=== PATIENT | male | born 1995 | race Caucasian/White ===

== ENCOUNTER 2016-12-21 22:14 | Emergency (ER) | payer OTHER, BC ==
--- NOTE | 2016-12-21 22:42 | CPEKG ---
Heart Rate: 63 RR Interval: 952 P-R Interval: 172 QRSD Interval: 92 QT Interval: 388 QTC Interval: 398 P [place]: 69 QRS [place]: 14 T Wave [place]: 32 EKG Severity - NORMAL ECG - EKG Impression: SINUS RHYTHM Electronically Signed By: Osmel Mckenzie 22-Dec-2016 00:07:27
--- NOTE | 2016-12-21 22:49 | EDPHY ---
H & P Time Seen by Provider: 12/21/16 22:22 HPI/ROS: HPI Lightheaded, visual changes, tingling in extremities. 21-year-old male by private vehicle. This patient reports that he was working out. He was weight lifting. He reports that in between sets of bench presses he would get a flushed feeling described as tingling all over and feeling lightheaded + seeing stars from both eyes but more from the left eye verses the right eye. He reports that he continue to work out and after each set these symptoms seem more pronounced. He then states he felt a dull, gradual onset headache during the workout and felt very fatigued. He left the gym and states that he felt a tingling sensation spread through his left upper extremity and a cramping sensation in his left forearm and hand at the same time. Reports he continued to have a sensation of seeing stars from the left eye. He went home and slept for an hour. He woke up and felt better. He was then doing an online test and again felt very fatigued having to put his head down between questions to rest. He states that he feels much better now that his symptoms have resolved. He talked to his parents and his parents told him to come to the emergency department to be evaluated. He is otherwise healthy and has never had these symptoms before. Denies camping or being out in the [place], exposure to tics. ROS: Constitutional: No fever, no chills. As above. Eyes: No discharge. As above. ENT: No sore throat. No nasal congestion or rhinorrhea. Respiratory: No cough. No shortness of breath. Cardiac: No chest pain, no palpitations. Gastrointestinal: No abdominal pain, no vomiting, no diarrhea. Genitourinary: No hematuria. No dysuria or increased frequency with urination. Musculoskeletal: No back pain. No neck pain. No myalgias or arthralgias. Skin: No rashes. Neurological: As above. No focal weakness or altered sensation. Past medical history: No past medical history. No prescription medications. Social history: Nonsmoker. Denies alcohol. Here by himself. Student [employer]. Physical Exam: General Appearance: Alert, no distress. This patient is responding to questions appropriately and in full sentences. This patient appears well- hydrated and well-nourished. Eyes: Pupils equal and round no pallor or injection. No lid edema, erythema or injection. No photophobia. No nystagmus. ENT, Mouth: Mucous membranes are moist. The pharyngeal tissues are unremarkable. No edema or swelling. No asymmetry suggestive of abscess. No erythema or exudates. Respiratory: There are no retractions, lungs are clear to auscultation with good air movement bilaterally. Cardiovascular: Regular rate and rhythm. No murmur. Gastrointestinal: Abdomen is soft and nontender, no masses, bowel sounds normal. No focal tenderness at McBurney's point. No Worley sign. Neurological: Motor sensory function is grossly intact. Cranial nerves are normal. Gait is normal. Skin: Warm and dry, no rashes. Musculoskeletal: Neck is supple and nontender. No pain on flexion of the neck. No bruits auscultated over his carotid arteries. No suboccipital posterior cervical pain on palpation. Extremities are symmetrical. All joints range without pain or impingement. Psychiatric: No agitation. No depression. Database: EKG: EKG time is 10:41 p.m.; EKG shows a narrow complex normal sinus rhythm with a ventricular rate of 63. The ND, QRS, QT intervals are within normal limits. There are no ST-T wave changes indicative of ischemic or injury pattern. No evidence of right heart strain. No evidence of Brugada syndrome, WPW, hypertrophic cardiomyopathy. Interpreted by me. Imaging: Carotid and vertebral artery Doppler ultrasounds: Normal bilateral carotid artery Doppler and vertebral artery Doppler ultrasounds. Results were discussed with staff radiologist Dr. Guillaume Lincoln. Procedures: Emergency department course: IV placed. He was placed on a mushroom packer. Vital signs reviewed and are normal. He was started on IV normal saline with 1 L to be given over 1 hour. EKG performed. Basic blood work obtained. Carotid artery Dopplers ordered. 11:30 p.m., patient re-evaluated. Resting comfortably at this time. He is asymptomatic. Results of blood work, EKG and Doppler ultrasounds discussed with him. Repeat neurologic Assessment is nonfocal. He has no complaints. He does feel comfortable going home and I feel he is safe for discharge. Return to emergency department precautions were thoroughly reviewed with him. Follow-up was discussed. All of his questions were answered. He was discharged home in good condition. Differential Diagnosis: The differential diagnosis on this patient includes but is not limited to hypoglycemia, anemia, stress reaction. TIA, CVA, MS unlikely. This represents a partial list of diagnoses considered. These considerations are based on history, physical exam, past history, reassessment and diagnostic testing. Smoking Status: Current some day smoker Constitutional: Initial Vital Signs Temperature (C) 36.7 C 12/21/16 22:17 Heart Rate 77 12/21/16 22:17 Respiratory Rate 16 12/21/16 22:17 Blood Pressure 131/63 H 12/21/16 22:17 O2 Sat (%) 95 12/21/16 22:17 O2 Delivery Mode Room Air Allergies/Adverse Reactions: No Known Allergies Allergy (Unverified 12/21/16 22:20) Home Medications: Medication Instructions Recorded NK [No Known Home Meds] 12/21/16 Medical Decision Making - Data Points Laboratory Results: Laboratory Results 12/21/16 22:50 12/21/16 22:50 12/21/16 12/21/16 22:50 22:50 WBC 12.17 10^3/uL H 10^3/uL (3.80-9.50) RBC 4.93 10^6/uL 10^6/uL (4.40-6.38) Hgb 16.0 g/dL g/dL (13.7-17.5) Hct 45.1 % % (40.0-51.0) MCV 91.5 fL fL (81.5-99.8) MCH 32.5 pg pg (27.9-34.1) MCHC 35.5 g/dL g/dL (32.4-36.7) RDW 10.9 % L % (11.5-15.2) Plt Count 258 10^3/uL 10^3/uL (150-400) MPV 10.4 fL fL (8.7-11.7) Neut % (Auto) 80.0 % H % (39.3-74.2) Lymph % (Auto) 14.2 % L % (15.0-45.0) [place] % (Auto) 3.8 % L % (4.5-13.0) Eos % (Auto) 1.0 % % (0.6-7.6) Baso % (Auto) 0.4 % % (0.3-1.7) Nucleat RBC Rel Count 0.0 % % (0.0-0.2) Absolute Neuts (auto) 9.74 10^3/uL H 10^3/uL (1.70-6.50) Absolute Lymphs (auto) 1.73 10^3/uL 10^3/uL (1.00-3.00) Absolute Monos (auto) 0.46 10^3/uL 10^3/uL (0.30-0.80) Absolute Eos (auto) 0.12 10^3/uL 10^3/uL (0.03-0.40) Absolute Basos (auto) 0.05 10^3/uL 10^3/uL (0.02-0.10) Absolute Nucleated RBC 0.00 10^3/uL 10^3/uL (0-0.01) Immature Gran % 0.6 % % (0.0-1.1) Immature Gran # 0.07 10^3/uL 10^3/uL (0.00-0.10) Sodium 134 mEq/L mEq/L (134-144) Potassium 4.2 mEq/L mEq/L (3.5-5.2) Chloride 100 mEq/L mEq/L (97-110) Carbon Dioxide 23 mEq/l mEq/l (22-31) Anion Gap 11 mEq/L mEq/L (8-16) BUN 19 mg/dL mg/dL (7-23) Creatinine 1.0 mg/dL mg/dL (0.7-1.3) Estimated GFR > 60 Glucose 99 mg/dL mg/dL (70-100) Calcium 9.7 mg/dL mg/dL (8.5-10.4) Medications Given: Discontinued Medications Sodium Chloride (Ns) 1,000 mls @ 0 mls/hr IV ONCE ONE PRN Reason: Wide Open Stop: 12/21/16 22:51 Last Admin: 12/21/16 22:55 Dose: 1,000 mls Departure - Departure Disposition: Home, Routine, Self-Care Clinical Impression: Paresthesia, Transient visual disturbance, Fatigue, Possible viral syndrome Condition: Good Instructions: Paresthesia (ED), Blurred Vision (ED) Additional Instructions: Read and follow provided instructions. Follow-up with your primary care physician at the [facility], in 1-2 days for re-evaluation. Keep yourself well hydrated and avoid exercise or strenuous activity for the next couple of days until after you have seen your primary care physician. Most important, return to the emergency department immediately for worsening headache, return of symptoms or other serious concerns. Referrals: JOY MENDOZA [Other] - As per Instructions AYAD Chan,. [Clinic] - As per Instructions
[2016-12-21] MEDS ORDERED: NS 1,000 ML IV ONE (22:50)
[2016-12-21 23:03] LABS: % IMMATURE GRANULYOCYTES 0.6 % (0.0-1.1); ABSOLUTE IMMATURE GRANULOCYTES 0.07 10^3/uL (0.00-0.10); ADD DIFF? NO; ADD MORPH? NO; ADD SCAN? NO; ATYPICAL LYMPHOCYTE FLAG 10 (0-99); FRAGMENT RBC FLAG 0 (0-99); HEMATOCRIT 45.1 % (40.0-51.0); LEFT SHIFT FLG 0 (0-99); LIPEMIA HEMOLYSIS FLAG 90 (0-99); MEAN CELL HEMOGLOBIN 32.5 pg (27.9-34.1); MEAN CELL HEMOGLOBIN CONCENTR. 35.5 g/dL (32.4-36.7); MEAN CELL VOLUME 91.5 fL (81.5-99.8); MEAN PLATELET VOLUME 10.4 fL (8.7-11.7); PLATELET CLUMPS FLAG 10 (0-99); PLATELET COUNT 258 10^3/uL (150-400); RED BLOOD CELL COUNT 4.93 10^6/uL (4.40-6.38); RED CELL DISTRIBUTION WIDTH 10.9 % (11.5-15.2)
[2016-12-21 23:19] LABS: ANION GAP 11 mEq/L (8-16); CALCIUM 9.7 mg/dL (8.5-10.4); CARBON DIOXIDE 23 mEq/l (22-31); CHLORIDE 100 mEq/L (97-110); GLOMERULAR FILTRATION RATE > 60; GLUCOSE 99 mg/dL (70-100); POTASSIUM 4.2 mEq/L (3.5-5.2); SODIUM 134 mEq/L (134-144)
[2016-12-21 23:38] VITALS: BP 124/66; PULSE 57; RESP 20; TEMP 97.5; O2SAT 98
== END 2016-12-21 23:38 | disposition home or self-care (01) ==
DX: H53.9 Unspecified visual disturbance (principal); R20.2 Paresthesia of skin; R53.83 Other fatigue; F17.200 Nicotine dependence, unspecified, uncomplicated

== ENCOUNTER 2017-06-17 05:37 | Emergency (ER) | payer OTHER, BC ==
[2017-06-17 05:43] VITALS: RESP 18; O2SAT 96
--- NOTE | 2017-06-17 05:57 | EDPHY ---
H & P Stated Complaint: LEFT FLANK PAIN STARED LAST NIGHT Source: Patient - Personal History Current Tetanus/Diphtheria Vaccine: Unsure - Medical/Surgical History Hx Asthma: No Hx Chronic Respiratory Disease: No Hx Diabetes: No Hx Cardiac Disease: No Hx Renal Disease: No Hx Cirrhosis: No Hx Alcoholism: No Hx HIV/AIDS: No Hx Splenectomy or Spleen Trauma: No Other PMH: LEFT SHOULDER SURG, TOOK GROWTH HORMONE - Social History Smoking Status: Current some day smoker HPI/ROS: HPI CHIEF COMPLAINT: Left flank pain HISTORY OF PRESENT ILLNESS: This patient is a 21-year-old male otherwise healthy no significant medical history does take a sleep aid at night, he presents emergency room with left flank pain. States this started around 1:00 p.m. last night. He does not recall any injury. He states hurt with certain positions and movements but he feels it "deep inside" describes sharp stabbing. It is paravertebral lumbar region left CVA region. He denies the pain radiating to his belly or genitals. Denies pain going down his gluteus or back. Stays localized to left CVA region. Denies injury or trauma. No fever. Past Medical History: No significant medical history Past Surgical History: No significant surgical history Social History: Denies daily use drugs alcohol tobacco products. [employer] student. Family History: Noncontributing ROS REVIEW OF SYSTEMS: A comprehensive 10 point review of systems is otherwise negative aside from elements mentioned in the history of present illness. Exam Constitutional appears well nontoxic triage nursing summary reviewed, vital signs reviewed, awake/alert. Eyes normal conjunctivae and sclera, EOMI, PERRLA. HENT normal inspection, atraumatic, moist mucus membranes, no epistaxis, neck supple/ no meningismus, no raccoon eyes. Respiratory clear to auscultation bilaterally, normal breath sounds, no respiratory distress, no wheezing. Cardiovascular rate normal, regular rhythm, no murmur, no edema, distal pulses normal. Gastrointestinal soft, non-tender, no rebound, no guarding, normal bowel sounds, no distension, no pulsatile mass. Genitourinary no CVA tenderness. Musculoskeletal specifically no midline lumbar pain, nontender palpation, no midline vertebral tenderness, full range of motion, no calf swelling, no tenderness of extremities, no meningismus, good pulses, neurovascularly intact. Skin pink, warm, & dry, no rash, skin atraumatic. Neurologic awake, alert and oriented x 3, AAOx3, moves all 4 extremities equally, motor intact, sensory intact, CN II-XII intact, normal cerebellar, normal vision, normal speech. Psychiatric normal mood/affect. Heme/Lymph/Immune no lymphadenopathy. Differential Diagnosis: Includes but is not limited to in a particular order kidney stone, hydroureter, hydronephrosis, musculoskeletal back pain, disc herniation, annular tear, nerve root compression Medical Decision Making: Plan for this patient check urinalysis, blood work, CT scan abdomen pelvis without contrast for acute left flank pain. IV Toradol and IV fluids. Re-evaluate. Re-evaluation: CT abdomen pelvis without contrast is negative for kidney stone. Normal appendix per constipation. Urinalysis pending. I did re-evaluate the patient. He is tells me he is feeling much better after IV Toradol. CT scan has been reviewed blood work reviewed. Urinalysis pending. His urinalysis normally can go home. Flexeril and ibuprofen for pain control. He understands return emergency room if he has worsening symptoms questions or concerns. (Daquan Michael) Constitutional: Initial Vital Signs Temperature (C) 36.6 C 06/17/17 05:40 Heart Rate 60 06/17/17 05:40 Respiratory Rate 18 06/17/17 05:40 Blood Pressure 98/59 L 06/17/17 05:40 O2 Sat (%) 96 06/17/17 05:40 O2 Delivery Mode Room Air Allergies/Adverse Reactions: No Known Allergies Allergy (Unverified 06/17/17 05:40) Home Medications: Medication Instructions Recorded Ibuprofen [Motrin (*)] 800 mg PO Q6-8PRN #10 tab 06/17/17 Medical Decision Making ED Course/Re-evaluation: 725 patient signed out to me pending urinalysis results. 0811 urinalysis is positive for blood. Symptoms are consistent with a passed kidney stone. Will discharge patient home. I do not think he probably needs Flexeril at this time. Continue ibuprofen. Follow up with primary care physician as needed. (Jim Waters) - Data Points Laboratory Results: Laboratory Results 06/17/17 06:15 06/17/17 06:15 06/17/17 06/17/17 06/17/17 07:25 06:15 06:15 WBC 6.30 10^3/uL 10^3/uL (3.80-9.50) RBC 4.87 10^6/uL 10^6/uL (4.40-6.38) Hgb 15.4 g/dL g/dL (13.7-17.5) Hct 45.0 % % (40.0-51.0) MCV 92.4 fL fL (81.5-99.8) MCH 31.6 pg pg (27.9-34.1) MCHC 34.2 g/dL g/dL (32.4-36.7) RDW 11.4 % L % (11.5-15.2) Plt Count 247 10^3/uL 10^3/uL (150-400) MPV 10.3 fL fL (8.7-11.7) Neut % (Auto) 47.5 % % (39.3-74.2) Lymph % (Auto) 41.6 % % (15.0-45.0) [place] % (Auto) 6.7 % % (4.5-13.0) Eos % (Auto) 3.0 % % (0.6-7.6) Baso % (Auto) 1.0 % % (0.3-1.7) Nucleat RBC Rel Count 0.0 % % (0.0-0.2) Absolute Neuts (auto) 3.00 10^3/uL 10^3/uL (1.70-6.50) Absolute Lymphs (auto) 2.62 10^3/uL 10^3/uL (1.00-3.00) Absolute Monos (auto) 0.42 10^3/uL 10^3/uL (0.30-0.80) Absolute Eos (auto) 0.19 10^3/uL 10^3/uL (0.03-0.40) Absolute Basos (auto) 0.06 10^3/uL 10^3/uL (0.02-0.10) Absolute Nucleated RBC 0.00 10^3/uL 10^3/uL (0-0.01) Immature Gran % 0.2 % % (0.0-1.1) Immature Gran # 0.01 10^3/uL 10^3/uL (0.00-0.10) Sodium 140 mEq/L mEq/L (134-144) Potassium 4.3 mEq/L mEq/L (3.5-5.2) Chloride 103 mEq/L mEq/L (97-110) Carbon Dioxide 24 mEq/l mEq/l (22-31) Anion Gap 13 mEq/L mEq/L (8-16) BUN 17 mg/dL mg/dL (7-23) Creatinine 1.0 mg/dL mg/dL (0.7-1.3) Estimated GFR > 60 Glucose 88 mg/dL mg/dL (70-100) Calcium 9.6 mg/dL mg/dL (8.5-10.4) Total Bilirubin 1.0 mg/dL mg/dL (0.1-1.4) Conjugated Bilirubin 0.3 mg/dL mg/dL (0.0-0.5) Unconjugated Bilirubin 0.7 mg/dL mg/dL (0.0-1.1) AST 22 IU/L IU/L (17-59) ALT 36 IU/L IU/L (21-72) Alkaline Phosphatase 50 IU/L IU/L (38-126) Total Protein 7.1 g/dL g/dL (6.3-8.2) Albumin 4.6 g/dL g/dL (3.5-5.0) Lipase 66 IU/L IU/L (23-300) Urine Color YELLOW Urine Appearance CLEAR Urine pH 6.0 (5.0-7.5) Ur Specific [place] 1.014 (1.002-1.030) Urine Protein NEGATIVE (NEGATIVE) Urine Ketones NEGATIVE (NEGATIVE) Urine Blood 1+ H (NEGATIVE) Urine Nitrate NEGATIVE (NEGATIVE) Urine Bilirubin NEGATIVE (NEGATIVE) Urine Urobilinogen NEGATIVE EU EU (0.2-1.0) Ur Leukocyte Esterase NEGATIVE (NEGATIVE) Urine RBC 5-10 /hpf H /hpf (0-3) Urine WBC NONE SEEN /hpf /hpf (0-3) Ur Epithelial Cells NONE SEEN /lpf /lpf (NONE-1+) Urine Mucus TRACE /lpf /lpf (NONE-1+) Urine Glucose NEGATIVE (NEGATIVE) Medications Given: Discontinued Medications Sodium Chloride (Ns) 1,000 mls @ 0 mls/hr IV EDNOW ONE; Wide Open PRN Reason: Protocol Stop: 08/31/17 06:04 Last Admin: 06/17/17 06:18 Dose: 1,000 mls Ketorolac Tromethamine (Toradol) 30 mg IVP EDNOW ONE Stop: 06/17/17 06:04 Last Admin: 06/17/17 06:18 Dose: 30 mg Departure - Departure Disposition: Home, Routine, Self-Care Clinical Impression: Kidney stone Condition: Good Instructions: Kidney Stones (ED) Additional Instructions: Your findings today suggest you have passed a kidney stone. There is no evidence of a kidney stone on her CT scan at this time. Continue taking ibuprofen as needed. Follow up with primary care physician for any concerns. Return to the emergency depart for increasing pain, nausea, vomiting, fevers, chills, or any other concerns. Referrals: Patient,NotPresent [Unknown] - As per Instructions Prescriptions: Ibuprofen [Motrin (*)] 800 mg PO Q6-8PRN #10 tab
[2017-06-17] MEDS ORDERED: NS 1,000 ML IV ONE (06:03)
[2017-06-17] MEDS ORDERED: KETOROLAC 30 MG/1 ML SDV IVP ONE (06:03)
[2017-06-17 06:28] LABS: % IMMATURE GRANULYOCYTES 0.2 % (0.0-1.1); ABSOLUTE IMMATURE GRANULOCYTES 0.01 10^3/uL (0.00-0.10); ADD DIFF? NO; ADD MORPH? NO; ADD SCAN? NO; ATYPICAL LYMPHOCYTE FLAG 20 (0-99); FRAGMENT RBC FLAG 0 (0-99); HEMOGLOBIN 15.4 g/dL (13.7-17.5); LEFT SHIFT FLG 0 (0-99); LIPEMIA HEMOLYSIS FLAG 90 (0-99); MEAN CELL HEMOGLOBIN 31.6 pg (27.9-34.1); MEAN CELL HEMOGLOBIN CONCENTR. 34.2 g/dL (32.4-36.7); MEAN CELL VOLUME 92.4 fL (81.5-99.8); MEAN PLATELET VOLUME 10.3 fL (8.7-11.7); PLATELET CLUMPS FLAG 10 (0-99); PLATELET COUNT 247 10^3/uL (150-400); RED BLOOD CELL COUNT 4.87 10^6/uL (4.40-6.38); RED CELL DISTRIBUTION WIDTH 11.4 % (11.5-15.2)
[2017-06-17 06:43] LABS: ALANINE AMINOTRANSFERASE 36 IU/L (21-72); ALBUMIN 4.6 g/dL (3.5-5.0); ALKALINE PHOSPHATASE 50 IU/L (38-126); ANION GAP 13 mEq/L (8-16); ASPARTATE AMINOTRANSFERASE 22 IU/L (17-59); BILIRUBIN-CONJUGATED 0.3 mg/dL (0.0-0.5); BILIRUBIN-UNCONJUGATED 0.7 mg/dL (0.0-1.1); CALCIUM 9.6 mg/dL (8.5-10.4); CARBON DIOXIDE 24 mEq/l (22-31); CHLORIDE 103 mEq/L (97-110); GLOMERULAR FILTRATION RATE > 60; GLUCOSE 88 mg/dL (70-100); POTASSIUM 4.3 mEq/L (3.5-5.2); SODIUM 140 mEq/L (134-144); TOTAL PROTEIN 7.1 g/dL (6.3-8.2)
[2017-06-17 08:01] LABS: COLOR YELLOW; LEUKOCYTE ESTERASE,URINE NEGATIVE (NEGATIVE); NITRITE,URINE NEGATIVE (NEGATIVE)
[2017-06-17 08:02] LABS: MUCUS TRACE /lpf (NONE-1+)
[2017-06-17 08:03] LABS: WBC,URINE NONE SEEN /hpf (0-3)
[2017-06-17 08:36] VITALS: BP 100/67; PULSE 69; TEMP 98.2
== END 2017-06-17 08:36 | disposition home or self-care (01) ==
DX: N20.0 Calculus of kidney (principal); E86.9 Volume depletion, unspecified; F17.200 Nicotine dependence, unspecified, uncomplicated
CPT/HCPCS: 96374; J1885